=== PATIENT | male | born 1985 | race Caucasian/White ===

== ENCOUNTER 2017-04-07 18:00 | Emergency (ER) | payer SELFPAY ==
[~2017-04-07] VITALS: Ht 177.8 cm; Wt 72.6 kg
[2017-04-07] MEDS ORDERED: IV NORMAL SALINE 1000ML BAG 1,000 ML IV ONE (20:00)
[2017-04-07 20:17] LABS: BARBITURATES NEG (NEG); BENZODIAZEPINES NEG (NEG); CANNABINOIDS POS (NEG); COCAINE NEG (NEG); METHADONE NEG (NEG); OPIATES NEG (NEG); PHENCYCLIDINE NEG (NEG)
[2017-04-07 21:08] LABS: BASO % 0 % (0-3); EOS % 0 % (0-3); HEMATOCRIT 43.2 % (39.0-53.0); LYMPH # 2.5 x10^3/uL (1.0-4.8); LYMPH % 17 % (24-48); MEAN CORPUSCULAR HEMOGLOBIN 31 pg (25-35); MEAN CORPUSCULAR HGB CONC 35 g/dL (31-37); MEAN CORPUSCULAR VOLUME 91 fL (79-100); MONO % 5 % (0-9); NEUT % 78 % (31-73); PLATELET COUNT 296 x10^3/uL (140-400); RED BLOOD COUNT 4.77 x10^6/uL (4.30-5.70); RED CELL DISTRIBUTION WIDTH 13.1 % (11.5-14.5); WHITE BLOOD COUNT 14.9 x10^3/uL (4.0-11.0)
[2017-04-07 21:18] LABS: CREATININE 1.2 mg/dL (0.7-1.3); GFR 71.6; POTASSIUM 3.9 mmol/L (3.5-5.1)
[2017-04-07 21:26] LABS: ALBUMIN 3.5 g/dL (3.4-5.0); ALBUMIN/GLOBULIN RATIO 1.1 (1.0-1.7); MAGNESIUM 2.4 mg/dL (1.8-2.4); TOTAL BILIRUBIN 0.3 mg/dL (0.2-1.0); TOTAL PROTEIN 6.8 g/dL (6.4-8.2)
[2017-04-07] MEDS ORDERED: ACETAMINOPHEN 500 MG TABLET PO ONE (22:00)
--- NOTE | 2017-04-07 22:14 | RAD ---
CT head without intravenous contrast History: New onset seizure, trauma to head. Comparison: None. Technique: Axial images are obtained of the head from the skull base through the vertex without IV contrast. Exposure: One or more of the following individualized dose reduction techniques were utilized for this examination: 1. Automated exposure control 2. Adjustment of the mA and/or kV according to patient size 3. Use of iterative reconstruction technique Findings: The ventricles are appropriate in size, shape, and location for the patient's age. No obvious intracranial mass, mass-effect, midline shift, hemorrhage or obvious acute infarction is identified. Basilar cisterns are patent. Bone windows demonstrate no acute calvarial abnormality. Incompletely seen, left greater than right maxillary sinus disease is present. Right occipital scalp hematoma is seen.. Impression: 1. No acute intracranial process. 2. Right scalp hematoma. 3. Paranasal sinus disease. Electronically signed by: Raghav Lea MD (04/07/2017 10:11 PM) [facility]
[2017-04-07 22:30] VITALS: BP 119/73
[2017-04-07] MEDS ORDERED: levETIRAcetam 500 MG TABLET PO ONE (22:30)
[2017-04-07] MEDS ORDERED: LEVE500T56 PO (22:33)
--- NOTE | 2017-04-07 22:33 | PHYS DOC ---
Past Medical History Past Medical History: Hypertension Additional Past Medical Histor: Heroin addiction, "cardiac arrest" Past Surgical History: Other Additional Past Surgical Histo: "They did some scope on me when I cardiac arrested." Alcohol Use: None Drug Use: Benzodiazepine, Heroin Adult General Chief Complaint Chief Complaint: SEIZURE HPI HPI Patient is a 31 year old male who presents with complaint of seizure episode. The patient was brought to the emergency department by EMS from [facility] after having what appear to be a seizure episode less than 30 minutes prior to arrival. The patient states that he does not remember everything that happened but does state that he started seeing bright "neon light" prior to the episode. Patient states the next thing he remembers was waking up in the ambulance coming to the emergency department. Patient denies any previous history of seizure episode. Patient states that he is currently detoxing from heroin. Patient also admits that he was taking Xanax in high doses but states that he was using this for only one week and has had not taken Xanax prior to the week before going to detox. Patient also denies any history of alcohol use. The patient states that he is having a headache currently but otherwise denies any other significant symptoms. The patient had reported convulsive activity at the scene and EMS reports that the patient appeared to be confused and disoriented which they attributed to a postictal state prior to arrival in the emergency department. Review of Systems Review of Systems Constitutional: Denies fever or chills [] Eyes: Denies change in visual acuity, redness, or eye pain [] HENT: Denies nasal congestion or sore throat [] Respiratory: Denies cough or shortness of breath [] Cardiovascular: Denies chest pain or edema [] GI: Denies abdominal pain, nausea, vomiting, bloody stools or diarrhea [] : Denies dysuria or hematuria [] Musculoskeletal: Denies back pain or joint pain [] Integument: Denies rash or skin lesions [] Neurologic: Seizure, headache, denies focal weakness or sensory changes [] Current Medications Current Medications Current Medications Medications (Trade) Dose Ordered Sig/Yvonne Start Time Stop Time Status Last Admin Dose Admin Acetaminophen (Tylenol) 1,000 mg 1X ONCE 04/07/17 22:00 04/07/17 22:01 DC 04/07/17 22:00 1,000 MG Sodium Chloride 1,000 ml @ 1,000 mls/hr 1X ONCE 04/07/17 20:00 04/07/17 20:59 DC 04/07/17 20:17 1,000 MLS/HR Allergies Allergies Allergies Coded Allergies Type Severity Reaction Last Updated Verified No Known Drug Allergies 04/07/17 No Physical Exam Physical Exam Constitutional: Well developed, well nourished, no acute distress, non-toxic appearance. [] HENT: Normocephalic, 3 cm right occipital scalp hematoma with overlying abrasion , bilateral external ears normal, oropharynx moist, no oral exudates, nose normal. [] Eyes: PERRLA, EOMI, conjunctiva normal, no discharge. [] Neck: Normal range of motion, no tenderness, supple, no stridor. [] Cardiovascular:Heart rate regular rhythm, no murmur [] Lungs & Thorax: Bilateral breath sounds clear to auscultation [] Abdomen: Bowel sounds normal, soft, no tenderness, no masses, no pulsatile masses. [] Skin: Warm, dry, no erythema, no rash. [] Back: No tenderness, no CVA tenderness. [] Extremities: No tenderness, no cyanosis, no clubbing, ROM intact, no edema. [] Neurologic: Alert and oriented X 3, normal motor function, normal sensory function, no focal deficits noted. [] Current Patient Data Vital Signs Vital Signs Date Time Temp Pulse Resp B/P (MAP) Pulse Ox O2 Delivery O2 Flow Rate FiO2 04/07/17 21:30 54 18 91/50 (64) 97 Room Air 04/07/17 18:00 98.0 98.0 Lab Values Laboratory Tests Test 04/07/17 19:29 04/07/17 20:35 Urine Opiates Screen Neg (NEG) Urine Methadone Screen Neg (NEG) Urine Barbiturates Neg (NEG) Urine Phencyclidine Screen Neg (NEG) Urine Amphetamine/Methamphetamine Neg (NEG) Urine Benzodiazepines Screen Neg (NEG) Urine Cocaine Screen Neg (NEG) Urine Cannabinoids Screen Pos (NEG) Urine Ethyl Alcohol Neg (NEG) White Blood Count 14.9 x10^3/uL (4.0-11.0) H Red Blood Count 4.77 x10^6/uL (4.30-5.70) Hemoglobin 15.0 g/dL (13.0-17.5) Hematocrit 43.2 % (39.0-53.0) Mean Corpuscular Volume 91 fL (79-100) Mean Corpuscular Hemoglobin 31 pg (25-35) Mean Corpuscular Hemoglobin Concent 35 g/dL (31-37) Red Cell Distribution Width 13.1 % (11.5-14.5) Platelet Count 296 x10^3/uL (140-400) Neutrophils (%) (Auto) 78 % (31-73) H Lymphocytes (%) (Auto) 17 % (24-48) L Monocytes (%) (Auto) 5 % (0-9) Eosinophils (%) (Auto) 0 % (0-3) Basophils (%) (Auto) 0 % (0-3) Neutrophils # (Auto) 11.6 x10^3uL (1.8-7.7) H Lymphocytes # (Auto) 2.5 x10^3/uL (1.0-4.8) Monocytes # (Auto) 0.8 x10^3/uL (0.0-1.1) Eosinophils # (Auto) 0.0 x10^3/uL (0.0-0.7) Basophils # (Auto) 0.0 x10^3/uL (0.0-0.2) Sodium Level 144 mmol/L (136-145) Potassium Level 3.9 mmol/L (3.5-5.1) Chloride Level 107 mmol/L (98-107) Carbon Dioxide Level 27 mmol/L (21-32) Anion Gap 10 (6-14) Blood Urea Nitrogen 13 mg/dL (8-26) Creatinine 1.2 mg/dL (0.7-1.3) Estimated GFR (Cockcroft-Gault) 71.6 BUN/Creatinine Ratio 11 (6-20) Glucose Level 94 mg/dL (70-99) Calcium Level 9.0 mg/dL (8.5-10.1) Magnesium Level 2.4 mg/dL (1.8-2.4) Total Bilirubin 0.3 mg/dL (0.2-1.0) Aspartate Amino Transferase (AST) 24 U/L (15-37) Alanine Aminotransferase (ALT) 37 U/L (16-63) Alkaline Phosphatase 97 U/L (46-116) Total Protein 6.8 g/dL (6.4-8.2) Albumin 3.5 g/dL (3.4-5.0) Albumin/Globulin Ratio 1.1 (1.0-1.7) Laboratory Tests 04/07/17 20:35 Laboratory Tests 04/07/17 20:35 EKG EKG Not performed [] Radiology/Procedures Radiology/Procedures [facility] [address] [place] [address] IMAGING REPORT Signed PATIENT: ALEIDA VEGA ACCOUNT: [id number] : 1985 LOCATION: ER AGE: 31 SEX: M EXAM STATUS: REG ER ORD. PHYSICIAN: MIKA LEO MD REASON: first-time seizure episode PROCEDURE: CT HEAD WO CONTRAST CT head without intravenous contrast History: New onset seizure, trauma to head. Comparison: None. Technique: Axial images are obtained of the head from the skull base through the vertex without IV contrast. Exposure: One or more of the following individualized dose reduction techniques were utilized for this examination: 1. Automated exposure control 2. Adjustment of the mA and/or kV according to patient size 3. Use of iterative reconstruction technique Findings: The ventricles are appropriate in size, shape, and location for the patient's age. No obvious intracranial mass, mass-effect, midline shift, hemorrhage or obvious acute infarction is identified. Basilar cisterns are patent. Bone windows demonstrate no acute calvarial abnormality. Incompletely seen, left greater than right maxillary sinus disease is present. Right occipital scalp hematoma is seen.. Impression: 1. No acute intracranial process. 2. Right scalp hematoma. 3. Paranasal sinus disease. Electronically signed by: Raghav Bonds MD (04/07/2017 10:11 PM) [facility] DICTATED and SIGNED BY: RAGHAV BONDS MD DATE: 04/07/172206 CC: MIKA LEO MD; NO PCP ~ [] Course & Med Decision Making Course & Med Decision Making Pertinent Labs and Imaging studies reviewed. (See chart for details) Patient's lab work appears stable and patient's head CT shows no acute intracranial findings. I spoke with Dr. Ramirez of neurology. The patient's episode is suspicious for seizure. This does not appear to be attributed to detoxing from the substances that the patient reported and patient's toxicology screen does not show substances consistent with causing seizure. Dr. Ramirez recommended that the patient be started on Keppra therapy. This was initiated in the emergency department. The patient will be referred to Dr. Ramirez for follow-up in the next 1-2 weeks. Recommended return to the emergency department for any worsening symptoms. Patient voiced understanding and in agreement with treatment plan. Dragon Disclaimer Dragon Disclaimer This electronic medical record was generated, in whole or in part, using a voice recognition dictation system. Departure Departure Impression: Primary Impression: Seizure Additional Impression: Closed head injury Disposition: HOME, SELF-CARE Condition: IMPROVED Referrals: NO PCP (PCP) SHIV RAMIREZ MD Patient Instructions: Head Injury, Adult, Seizure, Adult Additional Instructions: Follow-up with Dr. Ramirez in 1-2 weeks for reevaluation. Return to the emergency department for any worsening symptoms. Scripts Levetiracetam (KEPPRA) 500 Mg Tablet 1 TAB PO BID, #60 TAB 0 Refills Prov: MIKA LEO MD 04/07/17 Problem Qualifiers Additional Impression: Closed head injury Encounter type: initial encounter Qualified Codes: S09.90XA - Unspecified injury of head, initial encounter MIKA LEO MD Apr 07, 2017 22:33
== END 2017-04-07 22:56 | disposition home or self-care (01) ==
LOC: ER 18:00
DX: R56.9 Unspecified convulsions (principal); S00.03XA Contusion of scalp, initial encounter; I10 Essential (primary) hypertension; X58.XXXA Exposure to other specified factors, initial encounter; Y93.89 Activity, other specified; Y92.89 Other specified places as the place of occurrence of the external cause; Y99.8 Other external cause status
CPT/HCPCS: 36415; 70450; 80053; 80307; 83735; 85025; 96360; 96361; 99285; J7030; G0479